=== PATIENT | male | born 1995 | race African-American/Black ===

== ENCOUNTER 2017-08-01 01:14 | Emergency (ER) | payer SELFPAY, OTHER ==
[~2017-08-01] VITALS: Ht 172.7 cm; Wt 72.6 kg
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
[2017-08-01 01:30] VITALS: BP 0/0
== END 2017-08-01 01:30 ==
LOC: EMR 01:20
DX: M25.532 Pain in left wrist (principal); M25.531 Pain in right wrist; Z02.89 Encounter for other administrative examinations
CPT/HCPCS: 99283